=== PATIENT | male | born 1970 | race Caucasian/White ===

== ENCOUNTER → 2020-06-01 | Outpatient (CLI) | payer OTHER ==
--- NOTE | 2020-06-01 16:35 | Diagnostic Imaging Report ---
EXAMINATION: Right knee at 2:51 PM. INDICATION: Knee pain. TECHNIQUE/COMPARISON: Three views of the right knee were obtained. There are no prior studies for comparison. FINDINGS: There is no fracture, dislocation, or acute bony abnormality evident. There are orthopedic fixation screws in the distal femur and medial proximal tibia. This appearance does suggest a prior ACL repair. There is moderate degenerative disease of the medial compartment of the knee joint and the patellofemoral space. The lateral compartment is fairly well-maintained. The soft tissues are unremarkable. IMPRESSION: 1. There is no evidence for an acute bony abnormality. 2. There are post surgical changes consistent with prior ACL repair. 3. If there is clinical concern that the reconstructed anterior cruciate ligament has been injured, then MRI would be recommended for further evaluation. Dictated by: Dictated on workstation # [id number]
== END ==
LOC: RAD FS 13:59
PROVIDERS: ATTEND Nurse Practitioner
DX: M25.561 Pain in right knee (principal); Z98.890 Other specified postprocedural states
CPT/HCPCS: 73562

== ENCOUNTER 2022-10-10 08:10 | Outpatient (CLI) | payer OTHER ==
[~2022-10-10] VITALS: Ht 165.1 cm; Wt 111.4 kg
--- NOTE | 2022-10-10 10:24 | Physical Therapy Pre-Op Eval ---
PT Pre-Surgical Assessment Type of Surgery Type of Surgery: right TKR Prior Level of Function Current Living Status: Spouse Locomotion (Upon Admit): Independent PLOF DME: Front Wheeled Walker Subjective Home: Single Level Current Living Status: Spouse Motor Control Motor Control: Motor Control WNL ROM ROM: WFL Strength Strength: WFL Transfers Transfers (B, C, W/C) (FIM): 6 Gait Gait (FIM): 6 Gait Distance (FIM): 6 Gait Assistive Device: None Treatment Rendered Treatment: Patient instructed in assistive device, supported ambulation. Patient instructed in and given written program of ROM and strengthening exercises to be preformed post-op. Patient instructed in movement precautions where applicable. Patient demonstrates understandings of post-operative therapy protocol including gait pattern and exercise program. Pre-operative instruction completed; await physical therapy orders after surgery. Treatment Goal Met: Yes Assessment Goals Acheived: I Ambulation w/ FWW, Understands P-op Precaut, I Post-op Exercises Charges/GCodes Time In: 1000 Time Out: 1010 Total Billed Treatment Time: 10 Total Billed Treatment 1 Educ 10 min BRIAN JONAS PT Oct 10, 2022 10:24
[2022-10-10 10:33] LABS: PROTHROMBIN TIME PATIENT 13.6 SEC (12.2-14.7)
[2022-10-10] MEDS ORDERED: DIPH50CA33 PO (10:37)
[2022-10-10] MEDS ORDERED: ASCO500C17 PO (10:37)
[2022-10-10] MEDS ORDERED: MULT-1136 PO (10:37)
[2022-10-10] MEDS ORDERED: DICL100G13 TP (10:37)
[2022-10-10] MEDS ORDERED: CHOL200074 PO (10:37)
[2022-10-10] MEDS ORDERED: ATOR40TA70 PO (10:37)
--- NOTE | 2022-10-10 16:05 | Diagnostic Imaging Report ---
INDICATION: Preop for knee replacement surgery PA and lateral chest obtained at 1026 a.m. Heart and mediastinal silhouette are normal in appearance. The lungs are clear. There is no pneumothorax or pleural fluid. IMPRESSION: Negative chest. Dictated by: Dictated on workstation # [id number]
== END 2022-10-10 10:52 ==
LOC: PREOP 08:10
PROVIDERS: ATTEND Orthopaedic Surgery
DX: M17.11 Unilateral primary osteoarthritis, right knee (principal)
CPT/HCPCS: 36415; 71046; 82308; 82310; 85610; 85652; 86850; 86900; 86901; 87081

== ENCOUNTER 2022-10-18 07:30 | Inpatient (IN) | payer OTHER ==
--- NOTE | 2022-10-09 06:35 | HISTORY AND PHYSICAL ---
DATE OF SERVICE: 10/18/2022 ADMISSION HISTORY AND PHYSICAL This will be for inpatient admission on 10/18/2022 for right total knee arthroplasty. The patient will require regular inpatient admission due to comorbidities, need for pain management and physical therapy and gait abnormalities. HISTORY: The patient is a 52-year-old gentleman with longstanding progressive right knee pain. He underwent ACL reconstruction 18 years ago with subsequent arthroscopy four years ago, which provided temporary relief of the symptoms. He has undergone several injections as well as nerve ablation, but reports continued loss of function due to knee pain. He denies radicular pain, denies back pain. He reports activity limitations because of the knee. The patient understands due to the young age, he may require total knee arthroplasty revision in the future. Radiographs revealed hardware from previous ACL reconstruction, but severe medial patellofemoral arthrosis. REVIEW OF SYSTEMS: No chest pain, no shortness of breath. No dysuria. PAST MEDICAL HISTORY: Hyperlipidemia, chest pain, tension headaches, osteoarthritis. PAST SURGICAL HISTORY: Cervical spine, C4-C7; right ACL, right knee arthroscopy. FAMILY HISTORY: Significant for coronary artery disease, colon cancer, diabetes, hypertension. MEDICATIONS: Multivitamin, fish oil, vitamin D, AndroGel, diphenhydramine, atorvastatin, magnesium. ALLERGIES: ANDRODERM, SIMVASTATIN, CODEINE. SOCIAL HISTORY: The patient denies tobacco use. He drinks alcohol occasionally. PHYSICAL EXAMINATION: GENERAL: The patient is well-developed, well-nourished, in no acute distress. HEENT: Normocephalic, atraumatic. Pupils equal, round, reactive to light. Oropharynx is clear. NECK: Supple. No lymphadenopathy. LUNGS: Clear to auscultation bilaterally. HEART: Regular rate and rhythm. ABDOMEN: Soft, nontender, nondistended. EXTREMITIES: The right knee demonstrates varus alignment. He has a well-healed anterior incision. He has moderate effusion. He is tender along his medial joint line and has pain medially with Eduar's. His range of motion is 0/3/125. No varus or valgus laxity. Negative anterior and posterior drawer. Marked patellofemoral crepitus with patellar loading. IMPRESSION: Severe right knee osteoarthritis, unresponsive to conservative measures. PLAN: Right total knee arthroplasty. The risks, benefits, options, ramification, recovery have been discussed at length with the patient. He understands and wishes to proceed. Job ID: [id number] DocumentID: [id number] Dictated Date: 10/02/2022 09:29:44 Programmer Operator Numerical Control Date: 10/02/2022 11:00:00 Dictated By: MALIKA GILBERT MD
[~2022-10-18] VITALS: Ht 165 cm; Wt 111.4 kg
[2022-10-18] VITALS (11 sets, daily range): BP systolic 116–189; BP diastolic 65–99
[~2022-10-18 07:30] MED LIST: ASCO500C17 PO; ATOR40TA70 PO; CHOL200074 PO; DICL100G13 TP; DIPH50CA33 PO; MULT-1136 PO; ONDANSETRON 4 MG/2 ML (SDV) Z0FRAN IVP PRN; diphenhydrAMINE 50 MG/ML INJ (BENADRYL) IVP PRN; morphine PCA 100 MG/100 ML BAG IV PRN
[2022-10-18] MEDS ORDERED: INTRA-ARTICULAR IU ONE ×5 (07:45)
[2022-10-18] MEDS ORDERED: CEFUROXIME INJECTION 1,500 MG in NS (IVPB) 50 ML IV ONE (08:00)
[2022-10-18] MEDS ORDERED: MIDAZOLAM 2 MG/2 ML (VERSED) VIAL ONE (08:16)
[2022-10-18] MEDS ORDERED: ROPIVACAINE 5MG/ML 30ML VIAL ONE (08:16)
[2022-10-18] MEDS ORDERED: fentaNYL INJ 100 MCG/2 ML AMP ONE (08:16)
[2022-10-18] MEDS ORDERED: LIDOCAINE PF 2% 5 ML (XYLOCAINE) VIAL ONE ×2 (08:16→08:47)
[2022-10-18] MEDS: LACTATED RINGERS 1,000 ML IV PRN ×3 (08:35→11:44)
[2022-10-18] MEDS ORDERED: proPOfol 200 MG/20 ML (DIPRIVAN) VIAL IV ONE (08:47)
--- NOTE | 2022-10-18 09:13 | Progress Note-Pre Operative ---
Pre-Operative Progress Note Date of Available H&P: Oct 02, 2022 Date H&P Reviewed: Oct 18, 2022 Time H&P Reviewed: 07:11 Changes from last HP none Pre-Operative Diagnosis: right knee primary osteoarthritis MALIKA GILBERT MD Oct 18, 2022 09:13
--- NOTE | 2022-10-18 09:14 | Progress Note-Post Operative ---
Post-Operative Progess Note Surgeon (s)/Cat Scanner Operator (s) Surgeon MALIKA GILBERT MD Cat Scanner Operator: Tom Pantoja Pre-Operative Diagnosis right knee primary osteoarthritis Post-Operative Diagnosis right knee primary osteoarthritis Procedure & Operative Findings Date of Procedure 10/18/22 Procedure Performed/Findings right total knee arthroplasty Anesthesia Type GETA Estimated Blood Loss Estimated blood loss (mL): minimal Specimens/Packing Specimens Removed none Packing: none MALIKA GILBERT MD Oct 18, 2022 09:14
--- NOTE | 2022-10-18 09:16 | D/C HH Face to Face Order ---
D/C Face to Face Orders Reconcile Patient Problems Problems Reviewed?: Yes Instructions for Patient Via [place] [employer], Patient Instructions/FollowUp: three weeks Physician to follow Patient: three weeks Discharge Diet for Home: Regular Diet Patient Data-Allergies,Ht & Wt Patient Allergies: Coded Allergies: codeine (Unverified Allergy, Intermediate, Hives, 10/10/22) Home Health Need/Face to Face Date of Face to Face: Oct 18, 2022 Clinical Findings: Muscle weakness, Pain with ambulation, Unsteady gait I have seen Pt [id number]: Yes Discharged To: Home Diagnosis/Conditions: right total knee arthroplasty Patient is Homebound due to: Muscle weakness, Pain w/ambulation Homebound Status Due to the above stated illness, injury or surgical procedure (medical c ondition or diagnosis) and associated clinical findings, the patient is homebound because of his/her inability to leave home except with aid of a supportive device and/or person AND leaving the home requires a considerable and taxing effort or is medically contraindicated. Pt req the following assistanc: Walker Home Health Nursing Orders Home Health Services Order: Physical Therapy-Evaluate & Treat DC right knee teofilo and apply steri strips 11/01/22 Home Health Infusion Therapy Line Start Date: Oct 18, 2022 Therapy Orders Therapy Orders: Physical Therapy, PT to assess for OT Therapy Specific Orders: Eval assistive deivces, Teach enviro modifications/safety, Gait training, Increase strength/endurance, Provider maintenance therapy, Restore ROM Certify Stmt I certify that this patient is under my care and that I, a nurse practitioner or a physician; a cleaner assistant working with me, had a face to face encounter that - meets the physician face to face encounter requirements with this patient as dated. MALIKA GILBERT MD Oct 18, 2022 09:16
[2022-10-18] MEDS ORDERED: TRANEXAMIC ACID 100 MG/ML 10 ML INJECTION ONE (09:41)
[2022-10-18] MEDS ORDERED: HYDROmorphone 2 MG/ML VIAL (DILAUDID) ONE (09:49)
[2022-10-18] MEDS ORDERED: GLYCOPYRROLATE 0.2 MG/ML (ROBINUL) 2 ML VIAL ONE (10:39)
[2022-10-18] MEDS ORDERED: SEVOFLURANE (ULTANE) 15 ML INHAL SOLN ONE (10:58)
[2022-10-18] MEDS ORDERED: MEPERIDINE (DEMEROL) INJ 50 MG/ML ONE (11:10)
[2022-10-18] MEDS ORDERED: ONDANSETRON 4 MG/2 ML (SDV) Z0FRAN IVP PRN (11:15)
[2022-10-18] MEDS ORDERED: morphine INJ 10 MG/ML 1ML (SYR OR VIAL) IVP ONE (11:15)
[2022-10-18] MEDS ORDERED: MEPERIDINE (DEMEROL) INJ 50 MG/ML IVP ONE (11:15)
[2022-10-18] MEDS ORDERED: HYDROmorphone 2 MG/ML VIAL (DILAUDID) IV ONE (11:15)
[2022-10-18] MEDS: NS IV 1000 ML 1,000 ML IV SCH ×2 (13:05→21:50)
--- NOTE | 2022-10-18 13:23 | Progress Note ---
Standard Progress Note Progress Notes/Assess & Plan Date Seen by a Provider: Oct 18, 2022 Time Seen by a Provider: 13:20 Progress/Assessment & Plan post op check no complaints radiographs--HW well positioned without fracture RLE--2 pllus DP pulse with brisk cap refill intact DF and PF of toes and ankle sensation intact to light touch throughout s/p R TKA mobilize as able MALIKA GILBERT MD Oct 18, 2022 13:23
--- NOTE | 2022-10-18 14:02 | Consultation - Hospitalist ---
HPI History of Present Illness: HPI/Chief Complaint Patient is a 52-year-old male with past medical history of hyperlipidemia and osteoarthritis who was admitted to the hospital by Dr. Verdugo for total knee arthroplasty. He underwent surgery this morning and reports he is doing very well. His pain is controlled with his current pain regimen. He is resting at the moment and has not attempted to get up or eat yet. He denies any complaints. I am consulted for medical management. Source: patient Date Seen 10/18/22 Attending Physician No,Local Physician PCP Admitting Physician: Scott Verdugo MD Attending Physician: Scott Verdugo MD Referring Physician Date of Admission Oct 18, 2022 at 07:30 Home Medications & Allergies Home Medications Reviewed patient Home Medication Reconciliation performed by pharmacy medication reconciliations chief ophthalmic technician and/or nursing. Patients Allergies have been reviewed. Allergies Allergies Coded Allergies codeine (Unverified Allergy, Intermediate, Hives, 10/10/22) Past Tsuaybu-Omzsob-Lmddmp Hx Patient Social History Tobacco Use?: No Smoking Status: Never a Smoker Substance use?: No Alcohol Use?: Yes Alcohol type: Beer Alcohol Frequency: Couple times a week Pt feels they are or have been: No Immunizations Up To Date Date of Influenza Vaccine: Aug 09, 2022 First/Initial COVID19 Vaccinat: 2020 Second COVID19 Vaccination Ald[place]: 2020 Date of Pneumonia Vaccine: Oct 04, 2022 Seasonal Allergies Seasonal Allergies: No Current Status Advance Directives: No Communicates: Verbally Primary Language: Swedish Preferred Spoken Language: Swedish Is interpretation needed?: No Past Medical History Irregular Heartbeat Headaches /Migraines, Traumatic Brain Injury Kidney Stones Arthritis, Fractures PTSD, Violent Behavior Blood Disorders: No Adverse Reaction/Blood Tranf: No Family Medical History Reviewed Nursing Family Hx No Pertinent Family Hx Review of Systems Constitutional: no symptoms reported Respiratory: no symptoms reported Cardiovascular: no symptoms reported Musculoskeletal: joint pain Physical Exam Physical Exam Vital Signs Vital Signs - First Documented 10/18/22 07:50 Temp 36.1 Pulse 67 Resp 18 B/P (MAP) 136/91 (106) Pulse Ox 98 O2 Delivery Room Air Capillary Refill : Less Than 3 Seconds Height, Weight, BMI Height: '" Weight: lbs. oz. kg; 40.91 BMI Method: General Appearance: No Apparent Distress, WD/WN, Obese HEENT: PERRL/EOMI, Moist Mucous Membranes Neck: Normal Inspection, Supple Respiratory: Lungs Clear, No Respiratory Distress Cardiovascular: Regular Rate, Rhythm, No Murmur Gastrointestinal: Normal Bowel Sounds, Non Tender, Soft Extremity: No Calf Tenderness, No Pedal Edema, Other (DESTINY in place) Neurologic/Psychiatric: Alert, Oriented x3, Normal Mood/Affect Results Results/Procedures Labs Laboratory Tests 10/19/22 05:58 Patient resulted labs reviewed. Imaging: Reviewed Imaging Report Assessment/Plan Assessment and Plan Assess & Plan/Chief Complaint Right knee osteoarthritis POD #0 Pain regimen with LINE INSTALLER REPAIRER PT/OT Management per primary Elevated blood pressure Trend, likely due to pain HLD continue home statin DVT ppx: Loveprincessx HILARIO PRICE MD Oct 18, 2022 14:02
--- NOTE | 2022-10-18 15:00 | Physical Therapy Evaluation ---
PT Evaluation-General Medical Diagnosis Admission Date Oct 18, 2022 at 07:30 Medical Diagnosis: Right TKA Onset Date: Oct 18, 2022 Therapy Diagnosis Therapy Diagnosis: Gait Deficit, strength deficit Precautions Precautions/Isolations: Fall Prevention, Standard Precautions Weight Bear Status Right Lower Extremity: Right Weight Bearing/Tolerated Left Lower Extremity: Left Full Weight Bearing Referral Physician: James Reason for Referral: Evaluation/Treatment Medical History Reviewed History: Yes Social History Home: Single Level Current Living Status: Spouse Entry Into Home: Stairs Without Railing PT Steps Inside Home: 3 Prior Prior Level of Function SCALE: Activities may be completed with or without assistive devices. 5-Tyogflvjzk-lslfgfv completes the activity by him/herself with no assistance from a helper. 5-Set-up or Clean-up Assistance-helper sets up or cleans up; patient completes activity. [place] assists only prior to or following the activity. 4-Supervision or Touching Assistance-helper provides verbal cues and/or touching/steadying and/or contact guard assistance as patient completes activity. Assistance may be provided throughout the activity or intermittently. 3-Partial/Moderate Assistance-helper does LESS THAN HALF the effort. [place] lifts, holds or supports trunk or limbs, but provides less than half the effort. 2-Substantial/Maximal Assistance-helper does MORE THAN HALF the effort. [place] lifts or holds trunk or limbs and provides more than half the effort. 6-Dmuyabxik-jnknrw does ALL the effort. Patient does none of the effort to complete the activity. Or, the assistance of 2 or more helpers is required for the patient to complete the activity. If activity was not attempted, code reason: 7-Patient Refused. 9-Not Applicable-not attempted and the patient did not perform the activity before the current illness, exacerbation or injury. 10-Not Attempted due to Environmental Limitations-(lack of equipment, weather restraints, etc.). 88-Not Attempted due to Medical Conditions or Safety Concerns. Bed Mobility: 6 Transfers (B,C,W/C): 6 Gait: 6 Stairs: 6 Indoor Mobility (Ambulation): Independent Stairs: Independent Prior Devices Use: None Has FWW at home PT Evaluation-Current Subjective Patient lying supine in bed upon PT arrival, agreeable to treatment. Patient rates pain currently at 2/10 in right knee. Objective Patient Orientation: Person, Place, Time, Situation Attachments: Oxygen, Polar Pack, IV ROM/Strength ROM Lower Extremities Left LE WFLs all planes; Right knee extension lacks 10 degrees, flexion 80 degrees. All other right LE ROMs WFLs Strength Lower Extremities Left 5/5 all planes; Right knee extension and flexion 3/5, all other planes 4/5 Transfers Roll Left to Right (QC): 4 Sit to Lying (QC): 4 Lying to Sitting/Side of Bed(Q: 4 Sit to Stand (QC): 4 Chair/Bng-km-Yxjyd Xfer(QC): 4 Toilet Transfer (QC): 4 Gait Does the Patient Walk?: Yes Mode of Locomotion: Walk Anticipated Mode of Locomotion: Walk Walk 10 feet (QC): 3 Distance: 15 feet Gait Assistive Device: FWW Balance Sitting Static: Good Sitting Dynamic: Good Standing Static: Fair Standing Dynamic: Fair Assessment/Needs Patient tolerated treatment fair. Reports he uses O2 at home for cluster headaches and presents currently on 3 L O2, however reports no AWAD at this time. Patient performs all observed bed mobility and transfers with SBA. Patient ambulates 15 feet into the BR with FWW, with CGA and verbal cues for safety, progression, gait pattern and posture; ambulates to chair afterwards. Patient in chair post treatment with all needs met, nursing notified, call light in hand. Rehab Potential: Good Equipment Needs FWW PT Change Control Manager Goals Shelter Goals PT Shelter Goals Time Frame: Nov 04, 2022 Roll Left & Right (QC): 6 Sit to Lying (QC): 6 Lying-Sitting on Side/Bed(QC): 6 Sit to Stand (QC): 6 Chair/Lee-sm-Inwav Xfer(QC): 6 Toilet Transfer (QC): 6 Car Transfer (QC): 6 Does the Patient Walk: Yes Walk 10 feet (QC): 6 Walk 50ft with 2 Turns (QC): 6 Walk 150 ft (QC): 6 1 Step (curb) (QC): 4 4 Steps (QC): 4 12 Steps (QC): 4 PT Plan Problem List Problem List: Activity Tolerance, Functional Strength, Safety, Balance, Gait, Transfer, Bed Mobility, ROM Treatment/Plan Treatment Plan: Continue Plan of Care Treatment Plan: Bed Mobility, Education, Functional Activity Aleksandr Treatment Duration: Nov 04, 2022 Frequency: 11 times per week Estimated Hrs Per Day: .25 hour per day Patient and/or Family Agrees t: Yes Safety Risks/Education Patient Education: Gait Training, Transfer Techniques Teaching Recipient: Patient Teaching Methods: Demonstration, Discussion Response to Teaching: Verbalize Understanding, Return Demonstration Time Time In: 1433 Time Out: 1453 DATE: Oct 18, 2022 Total Billed Treatment Time: 20 Total Billed Treatment Visit, JOSE Brennan PT Oct 18, 2022 15:00
[2022-10-18] MEDS: SENNA W/DOCUSATE (SENOKOT S) TABLET PO SCH ×2 (15:11→21:48)
[2022-10-18] MEDS: CEFUROXIME INJECTION 750 MG in NS (IVPB) 50 ML IV SCH (15:31)
--- NOTE | 2022-10-18 16:37 | Diagnostic Imaging Report ---
EXAMINATION: Right knee, two views. HISTORY: Postop. COMPARISON: None available. FINDINGS: There is a right total knee arthroplasty with the components in near-anatomic position. There are skin teofilo and soft tissue gas. There is gas in the joint space. IMPRESSION: 1. Expected postsurgical changes of right total knee arthroplasty. Dictated by: Dictated on workstation # [id number]
--- NOTE | 2022-10-18 17:18 | OPERATIVE REPORT ---
DATE OF SERVICE: 10/18/2022 PREOPERATIVE DIAGNOSIS: Right knee primary osteoarthritis. POSTOPERATIVE DIAGNOSIS: Right knee primary osteoarthritis. PROCEDURE PERFORMED: Right total knee arthroplasty. SURGEON: Scott Gilbert MD. SAMPLE SUPERVISOR: Tom Pantoja, who assisted throughout the procedure and closed the incision. ANESTHESIA: General endotracheal. ANESTHESIOLOGIST: Meredith Del Toro CRNA. TOURNIQUET TIME: Approximately 65 minutes at 300 mmHg. ESTIMATED BLOOD LOSS: Minimal. DRAINS: None. COMPLICATIONS: None. POSTOPERATIVE PLAN: Routine total knee arthroplasty protocol. The patient was transferred to the recovery room awake and stable condition. MATERIALS: MicroPort cemented size 5 femur, cemented size 5 tibia with a 10 mm insert, and a cemented size 32 patellar button. STATEMENT OF MEDICAL NECESSITY: The patient is a 52-year-old active gentleman, who in the remote past, underwent an ACL reconstruction on his right knee. He has had progressive loss of function in the knee. Radiographs revealed severe tricompartmental osteoarthritis. He had tried injections, anti-inflammatories, and rest without relief. Due to functional impairment and failure to improve with conservative measures, the patient elected to proceed with surgical intervention. DESCRIPTION OF PROCEDURE: After the risks and benefits of the procedure were discussed and questions were answered and informed consent was signed and placed on the chart, the operative site was confirmed in the preoperative holding area and initialed by the surgeon. The patient was then transported to the operating room. After adequate level of general endotracheal anesthetic was obtained, a timeout was called, confirming the operative site, the right lower extremity was prepped and draped in the usual sterile fashion with the leg elevated. The tourniquet was inflated to 300 mmHg. A standard anterior approach was utilized and his previous incision was utilized inferiorly. The underlying soft tissues were carefully dissected. Hemostasis was obtained with cautery. A medial parapatellar arthrotomy was performed leaving 1 cm cuff on the patella for later reattachment. A portion of the fat pad was resected. A subperiosteal release was performed on the proximal medial tibia. The tibial screw was identified and removed. Following this, the ACL was resected and the screw was identified and removed without difficulty. The intramedullary guide was passed into the femur. The distal cutting block was placed. Distal cut was made. The femur sized to a size 5. The 5 cutting block was placed parallel to the epicondylar axis and cuts were made from posterior to anterior. A subperiosteal release was then carefully performed on the posterior distal femur being careful to stay on the bony surface. The intramedullary guide was then passed into the tibia. The cutting block was placed. The drop too transected the intermalleolar axis and the cut was made. The 5 baseplate was placed and pinned into position. The drop too transected the intramedullary access. This was prepared with a drill and keel punch. A 10 mm insert was placed. The femoral trial was placed. The trochlear cut was made. Patella was prepared by resecting 10 mm off the undersurface using the freehand technique. The peg guide was placed and the peg holes were drilled. The 32 trial was placed. The knee was taken through a range of motion. Full extension was easily obtained and 120 degrees of flexion with gravity was easily obtained. There was no anterior/posterior or medial/lateral laxity in flexion or extension and the patella tracked well. The trials were removed. The joint was irrigated with the pulse lavage. A periarticular block was placed and the posterior capsule, medial and lateral retinaculum extensor mechanism subcutaneous tissues. The bone ends were irrigated and dried and the tibial baseplate was cemented into position. Excessive cement was removed. The superior surface was irrigated and dried and the polyethylene insert was placed. The distal femur was irrigated and dried and the femoral prosthesis was cemented into position. The knee was brought out into full extension until the cement had cured. The undersurface of the patella was irrigated and dried. The patellar button was cemented into position. Excess cement was removed. Once the cement had cured, the knee was taken through the range of motion. Full extension was easily obtained 120 degrees flexion with gravity was easily obtained. There was no anterior/posterior or medial/lateral laxity in flexion or extension. The patella tracked well. The joint was further irrigated. The arthrotomy was closed with #2 Tevdek in figure-of-8 interrupted fashion. The knee was flexed and the repair was stable. Subcutaneous tissues were irrigated using a total of 6 liters throughout the procedure. A 0 Vicryl was used for the deep subcutaneous layer, 2-0 Vicryl for the superficial subcutaneous layer, staple was used on the skin. A soft dressing was applied. The tourniquet was deflated. The patient was transferred to the recovery room awake and stable condition. Job ID: [id number] DocumentID: [id number] Dictated Date: 10/18/2022 10:59:30 Geospatial Technician Date: 10/18/2022 17:16:00 Dictated By: SCOTT GILBERT MD
[2022-10-19] MEDS: CEFUROXIME INJECTION 750 MG in NS (IVPB) 50 ML IV SCH (00:25)
[2022-10-19] MEDS: NS IV 1000 ML 1,000 ML IV SCH ×2 (00:26→12:02)
[2022-10-19 03:36] VITALS: BP 180/96
[2022-10-19] MEDS: oxyCODONE/APAP 5/325MG (PERCOCET 5) TABLET PO PRN ×8 (03:45→22:48)
[2022-10-19] MEDS: ASPIRIN E.C. 81 MG (ECOTRIN) TAB PO SCH (07:31)
[2022-10-19] MEDS: SENNA W/DOCUSATE (SENOKOT S) TABLET PO SCH ×2 (07:31→20:10)
[2022-10-19] MEDS: ENOXAPARIN INJECTION 30 MG/0.3 ML SYR SC SCH ×2 (07:31→20:10)
--- NOTE | 2022-10-19 07:58 | Progress Note ---
Standard Progress Note Progress Notes/Assess & Plan Date Seen by a Provider: Oct 19, 2022 Time Seen by a Provider: 07:49 Progress/Assessment & Plan post op check no complaints radiographs--HW well positioned without fracture RLE--2 pllus DP pulse with brisk cap refill intact DF and PF of toes and ankle sensation intact to light touch throughout s/p R TKA mobilize as able Final Diagnosis no complaints Laboratory Tests Test 10/19/22 05:58 Range/Units Hemoglobin 12.0 L 13.3-17.7 g/dL Hematocrit 35 L 40-54 % Vital Signs Date Time Temp Pulse Resp B/P (MAP) Pulse Ox O2 Delivery O2 Flow Rate FiO2 10/19/22 03:36 37.5 89 20 180/96 (124) 96 Room Air 10/18/22 23:41 37.4 73 18 140/77 (98) 96 Room Air 10/18/22 20:00 Room Air 10/18/22 19:14 37.0 64 18 116/67 (83) 97 Room Air 10/18/22 19:14 18 10/18/22 15:18 36.5 64 16 136/83 (100) 95 Room Air 10/18/22 13:09 36.0 18 10/18/22 12:00 Nasal Cannula 3.00 10/18/22 12:00 36.0 74 18 134/83 (100) 97 Nasal Cannula 2.00 10/18/22 12:00 Room Air 10/18/22 11:47 36.1 20 166/90 (115) 93 Nasal Cannula 3.00 10/18/22 11:45 Room Air 10/18/22 11:40 14 165/99 (121) 100 OxyMask 10.00 10/18/22 11:30 16 164/98 (120) 99 OxyMask 10.00 10/18/22 11:30 OxyMask 10.00 10/18/22 11:20 16 189/95 (126) 100 OxyMask 10.00 10/18/22 11:15 OxyMask 10.00 10/18/22 11:10 21 166/71 (102) 96 OxyMask 10.00 10/18/22 11:00 36.2 13 122/65 (84) 94 OxyMask 10.00 10/18/22 11:00 OxyMask 10.00 I & O 10/19/22 07:00 Intake Total 2400 ml Balance 2400 ml RLE--dressing intact no calf tenderness neg sebastian's s/p RTKA PT/OT MALIKA GILBERT MD Oct 19, 2022 07:58
[2022-10-19] MEDS ORDERED: hydrALAZINE (APESOLINE) 20 MG/ML VIAL IV PRN (08:00)
[2022-10-19 08:36] VITALS: BP 181/88
[2022-10-19 09:15] VITALS: BP 169/80
--- NOTE | 2022-10-19 09:26 | Occupational Therapy Eval ---
OT Evaluation-General/PLF Medical Diagnosis Admission Date Oct 18, 2022 at 07:30 Medical Diagnosis: Right TKA Onset Date: Oct 18, 2022 Therapy Diagnosis Therapy Diagnosis: Weakness, Decreased ADL skills Precautions Precautions/Isolations: Standard Precautions Weight Bear Status Weight Bearing Restriction: Weight Bearing/Tolerated Referral Physician: Kartik Referral Reason: Activity Tolerance, Self Care, Evaluation/Treatment, Strengthening/ROM Medical History Pertinent Medical History: OA Additional Medical History ACL reconstruction, hyperlipidemia, tension headaches, C4-7 Current History Pt. had elective TKR on right LE. Reviewed History: Yes Social History Home: Single Level Current Living Status: Spouse Entry Into Home: Stairs Without Railing Steps Inside Home: 3 ADL-Prior Level of Function SCALE: Activities may be completed with or without assistive devices. 6-Bippxwttlk-nvqzdkj completes the activity by him/herself with no assistance from a helper. 5-Set-up or Clean-up Assistance-helper sets up or cleans up; patient completes activity. [place] assists only prior to or following the activity. 4-Supervision or Touching Assistance-helper provides verbal cues and/or touching/steadying and/or contact guard assistance as patient completes activity. Assistance may be provided throughout the activity or intermittently. 3-Partial/Moderate Assistance-helper does LESS THAN HALF the effort. [place] lifts, holds or supports trunk or limbs, but provides less than half the effort. 2-Substantial/Maximal Assistance-helper does MORE THAN HALF the effort. [place] lifts or holds trunk or limbs and provides more than half the effort. 7-Sfcekxutl-qyvwna does ALL the effort. Patient does none of the effort to complete the activity. Or, the assistance of 2 or more helpers is required for the patient to complete the activity. If activity was not attempted, code reason: 7-Patient Refused. 9-Not Applicable-not attempted and the patient did not perform the activity before the current illness, exacerbation or injury. 10-Not Attempted due to Environmental Limitations-(lack of equipment, weather restraints, etc.). 88-Not Attempted due to Medical Conditions or Safety Concerns. ADL PLOF Comments Pt. was fully independent with daily skills. Self Care: Independent Functional Cognition: Independent DME/Equipment: Shower DME/Equipment Comments Pt. has access to a walker and a shower chair. He does not typically use an assistive device. 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 reports pain but not pain level. He does push his pain button while OT in room. He states that his knee swelled overnight due to having pillow under it. Instructed on proper placement. Pt. also states that his polar pack is not working correctly. OT did observe it not working and reported it to nurse internet marketing manager. Appearance Pt. up in chair. Agrees to treatment. Mental Status/Objective Patient Orientation: Person, Place, Time, Situation Attachments: IV Current Upper Extremity ROM WFL Upper Extremity Strength WFL ADL-Treatment Eating (QC): 6 (Pt. had just finished breakfast.) Shower/Bathe Self (QC): 7 (Pt. declines getting cleaned up at this time.) Lower Body Dressing (QC): 5 (Pt. is wearing shorts. States that someone gave them to him but he put them on himself.) On/Off Footwear (QC): 3 (Mod assist. Pt. able to put right slipper sock on, but not left.) Toileting Hygiene (QC): 5 (Per pt., he is walking into bathroom with walker after set up with IV.) Other Treatments Pt. up in chair. He reports that his knee is swollen. OT offers to help him elevate it. He states that he is trying to move it on ground (slides) and would like to leave it down. He reports that his polar ice machine isn't working. OT moves it, attempts to get it to run. It will run a little bit but then shuts off. OT does report this to nurse internet marketing manager. Pt. declines sponge bath at this time. He just returned from PT but is able to stand with SBA. He is unable to reach right foot due to swelling in knee. OT educates him on AE but pt. states that he doesn't need to practice. His will assist him at home until he can bend his knee better. Pt. has been getting up to ambulate into bathroom as long as someone unplugs his IV. Pt. has no further questions or concerns. OT will discharge pt. at this time. Education OT Patient Education: Correct positioning, Modified ADL techniques, Progress toward Goal/Update tx plan, Purpose of tx/functional activities, Reviewed precautions, Rehab process, Transfer techniques Teaching Recipient: Patient Teaching Methods: Demonstration, Discussion Response to Teaching: Verbalize Understanding, Return Demonstration OT Echocardiography Radiology Technologist Goals Echocardiography Radiology Technologist Goals Time Frame: Oct 19, 2022 Additional Goals: 1-Demonstrate ADL Tasks, 2-Verbalize Understanding 1=Demonstrate adherence to instructed precautions during ADL tasks. 2=Patient will verbalize/demonstrate understanding of assistive devices/modifications for ADL. 3=Patient will improve strength/tolerance for activity to enable patient to perform ADL's. Pt. has verbalized understanding of possible equipment needs. He will have a walker at home from a family member, and reports that he can get a shower chair if needed. He is able to transfer self, toilet self, dress LE except for socks/shoes. He reports he will have assist as needed at home. Goals have been met for education on adaptive equipment for footwear. No further OT goals warranted at this time. OT Education/Plan Problem List/Assessment Assessment: Impaired Self-Care Skills Discharge Recommendations Plan/Recommendations: Discontinue OT Treatment Plan/Plan of Care Treatment,Training & Education: Yes Patient would benefit from OT for education, treatment and training to promote independence in ADL's, mobility, safety and/or upper extremity function for ADL's. Plan of Care: OTHER (No further OT needed at this time.) Treatment Duration: Oct 19, 2022 Frequency: 1 time per week Agreement: Yes Rehab Potential: Good Time Start Time: 08:30 Stop Time: 08:40 DATE: Oct 19, 2022 Total Time Billed (hr/min): 10 Billed Treatment Time 1, EVL x 10minutes Discharge OT at this time. MCKAY YOUNG OT Oct 19, 2022 09:26
--- NOTE | 2022-10-19 10:22 | Physical Therapy Daily Note ---
PT Daily Note-Current Subjective Patient agrees to PT. Pain Numeric Pain Scale: 10-Worst Possible Pain Location: Right Location Body Site: Knee Pain Description: Acute Section J - Health Conditions 1. Rarely or not at all 2. Occasionally 3. Frequently 4. Almost constantly 8. Unable to answer Pain Effect on Sleep: 3 Pain Interference with Therapy: 3 Pain Interference w/Day-to-Day: 3 Mental Status Patient Orientation: Normal For Age Attachments: Polar Pack, IV Transfers SCALE: Activities may be completed with or without assistive devices. 4-Smxydhgrkg-noodirq completes the activity by him/herself with no assistance from a helper. 5-Set-up or Clean-up Assistance-helper sets up or cleans up; patient completes activity. [place] assists only prior to or following the activity. 4-Supervision or Touching Assistance-helper provides verbal cues and/or touching/steadying and/or contact guard assistance as patient completes activity. Assistance may be provided throughout the activity or intermittently. 3-Partial/Moderate Assistance-helper does LESS THAN HALF the effort. [place] li fts, holds or supports trunk or limbs, but provides less than half the effort. 2-Substantial/Maximal Assistance-helper does MORE THAN HALF the effort. [place] lifts or holds trunk or limbs and provides more than half the effort. 7-Odeypvsus-duedjk does ALL the effort. Patient does none of the effort to complete the activity. Or, the assistance of 2 or more helpers is required for the patient to complete the activity. If activity was not attempted, code reason: 7-Patient Refused. 9-Not Applicable-not attempted and the patient did not perform the activity before the current illness, exacerbation or injury. 10-Not Attempted due to Environmental Limitations-(lack of equipment, weather restraints, etc.). 88-Not Attempted due to Medical Conditions or Safety Concerns. Lying to Sitting/Side of Bed(Q: 4 Sit to Stand (QC): 4 Chair/Aaq-zo-Iskum Xfer(QC): 4 Toilet Transfer (QC): 4 Weight Bearing Right Lower Extremity: Right Weight Bearing/Tolerated Left Lower Extremity: Left Full Weight Bearing Gait Training Distance: 300' Walk 10 feet (QC): 4 Walk 50 ft with 2 Turns(QC): 4 Walk 150 ft (QC): 4 Gait Assistive Device: FWW slow, antalgic Exercises Supine Ex: Ankle pumps, Quad Set, Heel Slides, Straight leg raise Supine Reps: 12 (AAROM right LE) Seated Therapy Exercises: Long arc quads (15) Assessment Patient lacks 15 degrees extension right knee. Resistive with all ROM due to pain. Patient has COW PUNCHER and pain pills. Increase activity as tolerated by patient. PT Perfect Binder Operator Goals Perfect Binder Operator Goals PT Perfect Binder Operator Goals Time Frame: Nov 04, 2022 Roll Left & Right (QC): 6 Sit to Lying (QC): 6 Lying-Sitting on Side/Bed(QC): 6 Sit to Stand (QC): 6 Chair/Nko-aa-Fmicr Xfer(QC): 6 Toilet Transfer (QC): 6 Car Transfer (QC): 6 Does the Patient Walk: Yes Walk 10 feet (QC): 6 Walk 50ft with 2 Turns (QC): 6 Walk 150 ft (QC): 6 1 Step (curb) (QC): 4 4 Steps (QC): 4 12 Steps (QC): 4 PT Plan Treatment/Plan Treatment Plan: Continue Plan of Care Treatment Plan: Bed Mobility, Education, Functional Activity Aleksandr Treatment Duration: Nov 04, 2022 Frequency: 11 times per week Estimated Hrs Per Day: .25 hour per day Patient and/or Family Agrees t: Yes Time Time In: 755 Time Out: 818 DATE: Oct 19, 2022 Total Billed Treatment Time: 23 Total Billed Treatment 1 visit EX 13 min GT 10 min BRIAN JONAS PT Oct 19, 2022 10:22
[2022-10-19 11:37] VITALS: BP 161/77
--- NOTE | 2022-10-19 12:41 | Anesthesia-General Post-Op ---
General Patient Condition Mental Status/LOC: Same as Preop Cardiovascular: Satisfactory Nausea/Vomiting: Absent Respiratory: Satisfactory Pain: Controlled Complications: Absent Post Op Complications Complications None Follow Up Care/Instructions Patient Instructions None needed. Anesthesia/Patient Condition Patient Condition Patient is doing well, no complaints, stable vital signs, no apparent adverse anesthesia problems. No complications reported per nursing. BILLY CARMONA CRNA Oct 19, 2022 12:41
--- NOTE | 2022-10-19 14:33 | Physical Therapy Daily Note ---
PT Daily Note-Current Subjective Patient agrees to PT. 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 Rarely or not at all 2. Occasionally 3. Frequently 4. Almost constantly 8. Unable to answer Pain Effect on Sleep: 3 Pain Interference with Therapy: 3 Pain Interference w/Day-to-Day: 3 Mental Status Patient Orientation: Normal For Age Attachments: Polar Pack, IV Transfers SCALE: Activities may be completed with or without assistive devices. 1-Fnnnrcanpw-biuylpl completes the activity by him/herself with no assistance from a helper. 5-Set-up or Clean-up Assistance-helper sets up or cleans up; patient completes activity. [place] assists only prior to or following the activity. 4-Supervision or Touching Assistance-helper provides verbal cues and/or touching/steadying and/or contact guard assistance as patient completes activity. Assistance may be provided throughout the activity or intermittently. 3-Partial/Moderate Assistance-helper does LESS THAN HALF the effort. [place] lifts, holds or supports trunk or limbs, but provides less than half the effort. 2-Substantial/Maximal Assistance-helper does MORE THAN HALF the effort. [place] lifts or holds trunk or limbs and provides more than half the effort. 7-Qtoydzibn-gpzcub does ALL the effort. Patient does none of the effort to complete the activity. Or, the assistance of 2 or more helpers is required for the patient to complete the activity. If activity was not attempted, code reason: 7-Patient Refused. 9-Not Applicable-not attempted and the patient did not perform the activity before the current illness, exacerbation or injury. 10-Not Attempted due to Environmental Limitations-(lack of equipment, weather restraints, etc.). 88-Not Attempted due to Medical Conditions or Safety Concerns. Sit to Lying (QC): 6 Lying to Sitting/Side of Bed(Q: 6 Sit to Stand (QC): 6 Weight Bearing Right Lower Extremity: Right Weight Bearing/Tolerated Left Lower Extremity: Left Full Weight Bearing Gait Training Distance: 250' Walk 10 feet (QC): 4 Walk 50 ft with 2 Turns(QC): 4 Walk 150 ft (QC): 4 Gait Assistive Device: FWW slow and antalgic Exercises Supine Ex: Ankle pumps, Quad Set, Heel Slides, Straight leg raise Supine Reps: 15 (AAROM with all) Seated Therapy Exercises: Long arc quads Seated Reps: 15 (AAROM) Assessment Patient having difficulty with activating quad musculature to perform LAQ and SLR. Plan dismissal tomorrow after therapy. Patient lacks ~20 degrees extension. Education with patient on importance of actively attaining AROM right knee to prevent possible negative side effects. Patient voices understanding. PT Miller Apprentice Goals Miller Apprentice Goals PT Intermediate Goals Time Frame: Nov 04, 2022 Roll Left & Right (QC): 6 Sit to Lying (QC): 6 Lying-Sitting on Side/Bed(QC): 6 Sit to Stand (QC): 6 Chair/Hyc-bn-Trewu Xfer(QC): 6 Toilet Transfer (QC): 6 Car Transfer (QC): 6 Does the Patient Walk: Yes Walk 10 feet (QC): 6 Walk 50ft with 2 Turns (QC): 6 Walk 150 ft (QC): 6 1 Step (curb) (QC): 4 4 Steps (QC): 4 12 Steps (QC): 4 PT Plan Treatment/Plan Treatment Plan: Continue Plan of Care Treatment Plan: Bed Mobility, Education, Functional Activity Aleksandr Treatment Duration: Nov 04, 2022 Frequency: 11 times per week Estimated Hrs Per Day: .25 hour per day Patient and/or Family Agrees t: Yes Time Time In: 1300 Time Out: 1326 DATE: Oct 19, 2022 Total Billed Treatment Time: 26 Total Billed Treatment 1 visit EX 16 min GT 10 min BRIAN JONAS PT Oct 19, 2022 14:33
[2022-10-19 16:15] VITALS: BP 189/80
[2022-10-19 19:39] VITALS: BP 144/76
--- NOTE | 2022-10-19 23:15 | DISCHARGE SUMMARY ---
DIAGNOSIS: 1. Right knee primary osteoarthritis. 2. Hyperlipidemia. 3. Chest pain. 4. Tension headaches. PROCEDURE: Right total knee arthroplasty. SUMMARY OF HOSPITAL COURSE: The patient is a 52-year-old gentleman who underwent a right total knee arthroplasty on the day of admission. Postoperatively, he did well. At time of discharge, his wound was clean and dry. He had no calf tenderness. He was tolerating his diet well and tolerating pain with oral pain medication. CONDITION AT DISCHARGE: Good. DISCHARGE DIET: Regular. FOLLOWUP: Followup is in 3 weeks. ACTIVITY: Weightbearing as tolerated with a walker. Home physical therapy will be arranged. DISCHARGE MEDICATIONS: Home medications and one aspirin per day for 30 days and Percocet as needed for pain. Job ID: [id number] DocumentID: [id number] Dictated Date: 10/19/2022 08:00:16 Heavy Lift Rigger Date: 10/19/2022 23:12:00 Dictated By: MALIKA GILBERT MD
[2022-10-20 00:26] VITALS: BP 155/79
[2022-10-20] MEDS: NS IV 1000 ML 1,000 ML IV SCH (01:33)
[2022-10-20] MEDS: oxyCODONE/APAP 5/325MG (PERCOCET 5) TABLET PO PRN ×3 (01:41→09:59)
[2022-10-20 04:00] VITALS: BP 161/83
[2022-10-20 06:18] LABS: HEMOGLOBIN 11.1 g/dL (13.3-17.7)
--- NOTE | 2022-10-20 06:54 | Progress Note ---
Standard Progress Note Progress Notes/Assess & Plan Date Seen by a Provider: Oct 20, 2022 Time Seen by a Provider: 06:53 Progress/Assessment & Plan post op check no complaints radiographs--HW well positioned without fracture RLE--2 pllus DP pulse with brisk cap refill intact DF and PF of toes and ankle sensation intact to light touch throughout s/p R TKA mobilize as able Final Diagnosis no complaints Vital Signs Date Time Temp Pulse Resp B/P (MAP) Pulse Ox O2 Delivery O2 Flow Rate FiO2 10/20/22 06:11 18 10/20/22 04:00 37.8 81 16 161/83 (109) 96 Room Air 10/20/22 00:26 37.7 89 16 155/79 (104) 96 Room Air 10/19/22 20:21 Room Air 10/19/22 19:39 37.9 74 18 144/76 (98) 97 Room Air 10/19/22 18:32 18 10/19/22 16:15 37.1 92 18 189/80 (116) 95 Room Air 10/19/22 11:37 37.4 87 18 161/77 (105) 97 Room Air 10/19/22 09:15 169/80 (109) 10/19/22 08:36 37.1 84 18 181/88 (119) 97 Room Air 10/19/22 08:00 Room Air I & O 10/20/22 06:59 Intake Total 2780 ml Balance 2780 ml Laboratory Tests Test 10/20/22 05:14 Range/Units Hemoglobin 11.1 L 13.3-17.7 g/dL Hematocrit 32 L 40-54 % RLE--incision clean and dry no calf tenderness neg Bharath's s/p RTKA doing well DC home after PT today MALIKA GILBERT MD Oct 20, 2022 06:54
[2022-10-20] MEDS ORDERED: morphine INJ 4 MG/ML 1 ML (VIAL/SYRINGE) IVP PRN (07:00)
[2022-10-20 07:51] VITALS: BP 144/92
[2022-10-20] MEDS: ENOXAPARIN INJECTION 30 MG/0.3 ML SYR SC SCH (08:11)
[2022-10-20] MEDS: ASPIRIN E.C. 81 MG (ECOTRIN) TAB PO SCH (08:11)
[2022-10-20] MEDS: SENNA W/DOCUSATE (SENOKOT S) TABLET PO SCH (08:11)
--- NOTE | 2022-10-20 09:51 | Physical Therapy Daily Note ---
PT Daily Note-Current Subjective Patient agrees to PT. Pain Numeric Pain Scale: 7 Location: Right Location Body Site: Knee Pain Description: Acute Section J - Health Conditions 1. Rarely or not at all 2. Occasionally 3. Frequently 4. Almost constantly 8. Unable to answer Pain Effect on Sleep: 3 Pain Interference with Therapy: 3 Pain Interference w/Day-to-Day: 3 Mental Status Patient Orientation: Normal For Age Transfers SCALE: Activities may be completed with or without assistive devices. 9-Rkwarxzznn-rnbkagi completes the activity by him/herself with no assistance from a helper. 5-Set-up or Clean-up Assistance-helper sets up or cleans up; patient completes activity. [place] assists only prior to or following the activity. 4-Supervision or Touching Assistance-helper provides verbal cues and/or touching/steadying and/or contact guard assistance as patient completes activity. Assistance may be provided throughout the activity or intermittently. 3-Partial/Moderate Assistance-helper does LESS THAN HALF the effort. [place] lifts, holds or supports trunk or limbs, but provides less than half the effort. 2-Substantial/Maximal Assistance-helper does MORE THAN HALF the effort. [place] lifts or holds trunk or limbs and provides more than half the effort. 5-Kiylclxck-oolxcu does ALL the effort. Patient does none of the effort to complete the activity. Or, the assistance of 2 or more helpers is required for the patient to complete the activity. If activity was not attempted, code reason: 7-Patient Refused. 9-Not Applicable-not attempted and the patient did not perform the activity before the current illness, exacerbation or injury. 10-Not Attempted due to Environmental Limitations-(lack of equipment, weather restraints, etc.). 88-Not Attempted due to Medical Conditions or Safety Concerns. Sit to Lying (QC): 6 (hooks right LE with left LE) Lying to Sitting/Side of Bed(Q: 6 (hooks right LE with left) Sit to Stand (QC): 6 Chair/Eif-ui-Cmjch Xfer(QC): 6 Weight Bearing Right Lower Extremity: Right Weight Bearing/Tolerated Left Lower Extremity: Left Full Weight Bearing Gait Training Distance: 200' x 2 Walk 10 feet (QC): 6 Walk 50 ft with 2 Turns(QC): 6 Walk 150 ft (QC): 6 Gait Assistive Device: FWW right knee flexed ~ 20 degrees Stair Training Stair Training: Handrails/: 1 handrail, uses walker #of Steps: 4 1 Step (curb) (QC): 4 4 Steps (QC): 4 Stairs: Pattern: Step to Exercises Supine Ex: Ankle pumps, Quad Set, Heel Slides, Straight leg raise Supine Reps: 15 (AAROM with SLR and HS) Seated Therapy Exercises: Long arc quads Seated Reps: 15 (AAROM right LE) Assessment Patient continues to have difficulty with right quad activation. Was able to perform stair training. Unable to perform SLR or LAQ right LE. Patient dismissing to home with spouse and home health. PT Care Home Goals Clothing Manager Goals PT Clothing Manager Goals Time Frame: Nov 04, 2022 Roll Left & Right (QC): 6 Sit to Lying (QC): 6 Lying-Sitting on Side/Bed(QC): 6 Sit to Stand (QC): 6 Chair/Gzu-md-Degps Xfer(QC): 6 Toilet Transfer (QC): 6 Car Transfer (QC): 6 Does the Patient Walk: Yes Walk 10 feet (QC): 6 Walk 50ft with 2 Turns (QC): 6 Walk 150 ft (QC): 6 1 Step (curb) (QC): 4 4 Steps (QC): 4 12 Steps (QC): 4 PT Plan Treatment/Plan Treatment Plan: Discontinue PT, goals met Treatment Plan: Bed Mobility, Education, Functional Activity Aleksandr Treatment Duration: Nov 04, 2022 Frequency: 11 times per week Estimated Hrs Per Day: .25 hour per day Patient and/or Family Agrees t: Yes Time Time In: 815 Time Out: 839 DATE: Oct 20, 2022 Total Billed Treatment Time: 24 Total Billed Treatment 1 visit FA 14 min EX 10 min BRIAN JONAS PT Oct 20, 2022 09:51
[2022-10-20 10:25] VITALS: BP 144/92
== END 2022-10-20 10:25 | disposition home health service (06) | DRG 470 ==
LOC: 4TH 07:30 → SURG 07:31 → 4TH 12:00
PROVIDERS: ADMIT Orthopaedic Surgery; ATTEND Orthopaedic Surgery
PROC: 0SRC0J9 Replacement of Right Knee Joint with Synthetic Substitute, Cemented, Open Approach (ICD-10-PCS; principal; 2022-10-18 09:19)
DX: M17.11 Unilateral primary osteoarthritis, right knee (principal); E78.5 Hyperlipidemia, unspecified; G89.29 Other chronic pain; G44.209 Tension-type headache, unspecified, not intractable; Z87.820 Personal history of traumatic brain injury; F43.10 Post-traumatic stress disorder, unspecified
CPT/HCPCS: 36415; 73560; 85014; 85018; 86850; 86900; 86901